=== PATIENT | female | born 2000 ===

== ENCOUNTER 2024-06-06 23:20 | Emergency (ER) | payer SELFPAY ==
--- NOTE | 2024-06-06 23:27 | ED_ITS ---
HPI - Female Genitourinary General Chief complaint: General Medical Stated complaint: STI? Time Seen by Provider: 06/06/24 23:26 Source: patient Mode of arrival: ambulatory Limitations: no limitations History of Present Illness ED Provider: TOMMIE PAGE Narrative: 24 yo female healthy here with concern for STI screening after her male partner got back together with his ex. His ex then informed patient that she has HPV. Patient then came her to get HPV testing done though has no symptoms at all no pain, lesions, discharge. She does not have insurance or OBGYN. Patient unsure if she had GARDASIL in the past. She denies this was genital warts exposure MD elicited complaint: possible STD Onset (ago): week(s) Location of symptoms: none Vaginal discharge: none Vaginal bleeding: none Exacerbating factors: none Relieving factors: none Associated symptoms: denies other symptoms Treatment prior to arrival: none Sexual activity: Yes Related Data Allergies Allergy/AdvReac Type Severity Reaction Status Date / Time No Known Allergies Allergy Verified 06/06/24 23:36 Review of Systems Review of Systems: Constitutional : No Fever, No Chills, No Fatigue ENT/Mouth : No sore throat, No Rhinorrhea Eyes: No Eye Pain, No Swelling, No Redness Cardiovascular : No Chest Pain, No SOB, No Dyspnea on Exertion Respiratory : No Cough, No Sputum Gastrointestinal : No Nausea, No Vomiting, No Diarrhea, No abdominal Pain Genitourinary : No Dysuria, No Urinary Frequency, No Hematuria, no vaginal discharge, no lesions Musculoskeletal : No joint pain, No Myalgias, No Joint Swelling Skin : No Skin Lesions, No rash Neuro : No Weakness, No Numbness, No Dizziness, positive Headache PMFSH Past Medical History Attestation statement: The following information was validated with the patient. Medical History (Updated 06/06/24 @ 23:52 by Lynn Green DO) No pertinent past medical history Social History Social History (Updated 06/06/24 @ 23:52 by Lynn Green DO) Patient Tobacco Use Status: Never used Tobacco Physical Exam Vital Signs: Vital Signs: Last Vital Signs Temp 97.5 F 06/06/24 23:29 Pulse 105 H 06/06/24 23:29 Resp 22 H 06/06/24 23:29 BP 141/91 H 06/06/24 23:29 Pulse Ox 97 10/27/24 23:29 O2 Del Method Room Air 10/27/24 23:29 BMI result Body Mass Index 28.2 Appearance: Alert. Oriented X3. No acute distress. Eyes: Pupils equal, round and reactive to light. ENT: Pharynx normal. Neck: Normal inspection. Neck supple. CVS: Pulses normal. Respiratory: No respiratory distress. Abdomen: Soft and non-tender. Skin: Skin warm and dry. Normal skin color. Extremities: No lower extremity edema. Neuro: Oriented X 3. No motor deficit. No sensory deficit. Medical Decision Making Medical Decision Making [facility] Narrative: 24 yo female with no sig PMH here with c/o HPV exposure not genital warts at this time she has no symptoms [facility] - [facility] CTNG and trichomonas. She was given precautions to return. Differential Diagnosis Differential Diagnoses: The differential diagnosis associated with the presentation includes STI exposure Lab Data [facility] Lab Attestation statement: I reviewed the patient's lab results. Independent Historian Clinical information obtained from an independent historian. History obtained from or confirmed by: Friend Discharge Plan Discharge Clinical Impression: Possible exposure to STI Patient Disposition: Home, Self-Care Instructions: Safe Sex Practices (ED) Additional Instructions: we will call you with results if positive in the next 24 to 48 hours return for any worsening symptoms or concerns HPV can cause abnormal cervical disease and cervical cancer. It is unfortunately a virus and there is no medication right now to prevent this from occurring. Please monitor your symptoms and follow up with the providers below. can follow up with [facility] [address] [facility] [phone] [facility] [address] [facility] [address] [facility] [phone] Our main entrance financial counseling services can help you establish insurance Print Language: Wallisian
[2024-06-06 23:28] VITALS: BP 155/105; PULSE 126; RESP 20; TEMP 36.4; O2SAT 97
[2024-06-06 23:29] VITALS: BP 141/91; PULSE 105; RESP 22; TEMP 36.4; O2SAT 97; BMI 28.2
[2024-06-07] VITALS: BP 141/91; PULSE 105; RESP 22; TEMP 36.4; O2SAT 97
[2024-06-07 01:41] LABS: CT PCR NOT DETECTED (Not Detect.); NG PCR NOT DETECTED (Not Detect.)
== END 2024-06-07 00:09 | disposition home or self-care (01) ==
PROVIDERS: Emergency Provider Emergency Medicine
DX: Z20.2 Contact with and (suspected) exposure to infections with a predominantly sexual mode of transmission (principal)
CPT/HCPCS: 87491; 87591; 99283; 99284

== ENCOUNTER 2024-06-27 23:27 | Emergency (ER) | payer OTHER, SELFPAY ==
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
[2024-06-27 23:29] VITALS: BP 134/78; PULSE 71; RESP 16; TEMP 36.6; O2SAT 98; BMI 28.2
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
[2024-06-28 00:56] VITALS: BP 124/81; PULSE 67; RESP 18; TEMP 36.6; O2SAT 98
--- NOTE | 2024-06-28 01:07 | PC.NURSE ---
provider made aware of pt pain scale states 7/10. pt is sitting upright in bed talking laughing, no coker, reviewed pain scale with pt and she lowered her pain to 3/10
[2024-06-28] MEDS: Ibuprofen 400 MG TABLET PO (01:09)
[2024-06-28 01:11] VITALS: BP 124/81; PULSE 67; RESP 18; TEMP 36.6; O2SAT 98
== END 2024-06-28 01:12 | disposition home or self-care (01) ==
PROVIDERS: Emergency Provider Emergency Medicine Emergency Medical Services
DX: S39.012A Strain of muscle, fascia and tendon of lower back, initial encounter (principal); S09.90XA Unspecified injury of head, initial encounter; S13.9XXA Sprain of joints and ligaments of unspecified parts of neck, initial encounter; V43.52XA Car driver injured in collision with other type car in traffic accident, initial encounter; Y93.89 Activity, other specified; Y92.410 Unspecified street and highway as the place of occurrence of the external cause; Y99.9 Unspecified external cause status
CPT/HCPCS: 73564; 99283; 99285